=== PATIENT | female | born 1975 | race Caucasian/White ===

== ENCOUNTER 2016-12-15 03:58 | Emergency (ER) | payer BC ==
[~2016-12-15] VITALS: Ht 167.6 cm; Wt 72.0 kg
[~2016-12-15 03:58] MED LIST: ACYC800T57 PO; D-ME118S6 PO
[2016-12-15 04:03] VITALS: Ht 167.6 cm; Wt 72.0 kg
[2016-12-15 04:35] LABS: URINE BLOOD (Dip) POC Trace-intact (NEGATIVE)
--- NOTE | 2016-12-15 04:43 | ERD ---
ER Documentation Chief Complaint Date/Time DATE: 12/15/16 TIME: 04:35 Chief Complaint painful/burning urination/back pain x 2 days. HPI 41 year female presents here in emergency department for complaints of dysuria for 2 days. Patient's complaining of denies pain upon urination, burning pain, 6 /10 scale, radiates to the back area. She denies any fever or chills. Patient denies any vomiting. Patient denies any hematuria. Patient denies any vaginal itching or vaginal discharge. Patient denies any abdominal pain. She is complaining of bilateral flank pain. Patient states that she has dark-colored urine. ROS All systems reviewed and are negative except as per history of present illness. Medications Home Meds Active Scripts Dextromethorphan Hb-Promethazine Hcl (Promethazine DM Syrup) 180 Ml Syrup, 5 ML PO Q6H Y for COUGH, #4 OZ Prov:RAY CAMPBELL 02/22/16 Acyclovir* (Zovirax*) 800 Mg Tablet, 800 MG PO 5 TIMES DAILY for 7 Days, TAB Prov:RAY CAMPBELL 02/22/16 Allergies Allergies: Coded Allergies: No Known Drug Allergies (Verified Allergy, Unknown, 12/15/16) PMhx/Soc History of Surgery: Yes (brain surgery) Anesthesia Reaction: No Hx Neurological Disorder: No Hx Respiratory Disorders: No Hx Cardiac Disorders: No Hx Psychiatric Problems: No Hx Miscellaneous Medical Probl: No Hx Alcohol Use: No Hx Substance Use: No Hx Tobacco Use: No Smoking Status: Never smoker FmHx Family History: No coronary disease, No diabetes, No other Physical Exam Vitals Vital Signs Date Time Temp Pulse Resp B/P Pulse Ox O2 Delivery O2 Flow Rate FiO2 12/15/16 04:03 98.2 70 20 107/51 97 Physical Exam GENERAL: The patient is well developed and appropriate for usual state of health, in no apparent distress. CHEST: Clear to auscultation bilaterally. There are no rales, wheezes or rhonchi. HEART: Regular rate and rhythm. No murmurs, clicks, rubs or gallops. No S3 or S4. ABDOMEN: Soft, nontender and nondistended. Good bowel sounds. No rebound or guarding. No gross peritonitis. No gross organomegaly or masses. No Paul sign or McBurney point tenderness. BACK: No midline or flank tenderness. EXTREMITIES: Equal pulses bilaterally. There is no peripheral clubbing, cyanosis or edema. No focal swelling or erythema. Full range of motion. Grossly neurovascularly intact. NEURO: Alert and oriented. Cranial nerves 2-12 intact. Motor strength in all 4 extremities with 5/5 strength. Sensation grossly intact. Normal speech and gait. SKIN: There is no apparent rash or petechia. The skin is warm and dry. HEMATOLOGIC AND LYMPHATIC: There is no evidence of excessive bruising or lymphedema. No gross cervical, axillary, or inguinal lymphadenopathy. Results 24 hrs Laboratory Tests Test 12/15/16 04:36 Bedside Urine Blood Trace-intact Bedside Urine Glucose (UA) Negative Bedside Urine Ketones (LAB) Negative Bedside Urine Leukocyte Esterase (L Negative Bedside Urine Nitrite (LAB) Negative Bedside Urine Protein (LAB) Negative Bedside Urine pH (LAB) 5.5 PROCEDURE: CT Abdomen and pelvis without contrast. CLINICAL INDICATION: Abdominal pain, dysuria. TECHNIQUE: CT scan of the abdomen and pelvis was performed on a multi- detector high-resolution CT scanner. Contiguous axial images were obtained from the lung bases to the ischial tuberosities without intravenous contrast. Coronal and sagittal reformatted images were also obtained. Images were reviewed on the PACS workstation. One or more of the following dose reduction techniques were used: - Automated exposure control. - Adjustment of the mA and/or kV according to patient size. - Use of iterative reconstruction technique. Exam CTD/vol = 9.18 mGy. Total exam DLP = 516.74 mGy-cm. COMPARISON: None. FINDINGS: Evaluation of the lung bases demonstrates no pleural or parenchymal disease. Abdomen: The liver is normal in size. There is no focal mass or dilatation of the biliary tree. The gallbladder is not distended. The spleen, pancreas and bilateral adrenal glands are within normal limits. Bilateral kidneys are normal in size with no contour deforming mass identified. There is no radiopaque renal or ureteral calculus identified. There is no hydronephrosis or hydroureter. There is no retroperitoneal adenopathy. The abdominal aorta is of normal caliber. There is no abnormal bowel wall thickening or distension. There is no bowel obstruction or free air. A normal appendix is identified. There is no diverticulosis or diverticulitis. There is no ascites. Pelvis: The bladder is unremarkable. The uterus and adnexa are within normal limits. There is no significant pelvic adenopathy or free fluid. Evaluation of the osseous structures demonstrates no suspicious lytic or blastic lesion. IMPRESSION: No acute abnormality identified within the abdomen and pelvis. .Sedrick Deluca MD, MD Date Time Electronically viewed and signed by .Sedrick Deluca MD, MD on 12/15/2016 04:58 Procedures/MDM Medical Decision Making: Patient symptoms of dysuria and hematuria most likely consistent with possible cystitis. No symptoms at all and nephritis. No infected stone noted. There is low suspicion for abdominal emergencies at this time. Patients abdominal exam is normal at this time. Patients radiology exam does not show any abdominal emergencies at this time. There is low suspicion for appendicitis, cholecystitis, abdominal aortic aneurysms or peritonitis at this time. There is low suspicion for sepsis. Patient appears well and is hemodynamically stable. Disposition: Home. Condition: Stable Prescription ciprofloxacin, Pyridium. Instructions: Patient is advised to take medications as prescribed. Patient is advised to rest, increase fluid intake and do good perineal hygiene. Patient is advised that if symptoms are worse, severe abdominal pain, uncontrolled vomiting , high fever, severe flank pain, worst signs and symptoms, to return to the emergency department immediately. Otherwise, patient can follow up with primary care doctor in 5-7 days. Departure Diagnosis: Primary Impression: Cystitis Condition: Stable Patient Instructions: Cystitis Additional Instructions: Patient is advised to take medications as prescribed. Patient is advised to rest , increase fluid intake and do good perineal hygiene. Patient is advised that if symptoms are worse, severe abdominal pain, uncontrolled vomiting, high fever , severe flank pain, worst signs and symptoms, to return to the emergency department immediately. Otherwise, patient can follow up with primary care doctor in 5-7 days. STEPHEN DEVINE NP Dec 15, 2016 04:43
--- NOTE | 2016-12-15 04:58 | RADRPT ---
PROCEDURE: CT Abdomen and pelvis without contrast. CLINICAL INDICATION: Abdominal pain, dysuria. TECHNIQUE: CT scan of the abdomen and pelvis was performed on a multi-detector high-resolution CT scanner. Contiguous axial images were obtained from the lung bases to the ischial tuberosities wit hout intravenous contrast. Coronal and sagittal reformatted images were also obtained. Images were reviewed on the PACS workstation. One or more of the following dose reduction techniques were used: - Automated exposure control. - Adjustment of the mA and/or kV according to patient size. - Use of iterative reconstruction technique. Exam CTD/vol = 9.18 mGy. Total exam DLP = 516.74 mGy-cm. COMPARISON: None. FINDINGS: Evaluation of the lung bases demonstrates no pleural or parenchymal disease. Abdomen: The liver is normal in size. There is no focal mass or dilatation of the biliary tree. T he gallbladder is not distended. The spleen, pancreas and bilateral adrenal glands are within leyla l limits. Bilateral kidneys are normal in size with no contour deforming mass identified. There is no radiopaque renal or ureteral calculus identified. There is no hydronephrosis or hydroureter. T here is no retroperitoneal adenopathy. The abdominal aorta is of normal caliber. There is no abnormal bowel wall thickening or distension. There is no bowel obstruction or free air . A normal appendix is identified. There is no diverticulosis or diverticulitis. There is no asci jose. Pelvis: The bladder is unremarkable. The uterus and adnexa are within normal limits. There is no significant pelvic adenopathy or free fluid. Evaluation of the osseous structures demonstrates no suspicious lytic or blastic lesion. IMPRESSION: No acute abnormality identified within the abdomen and pelvis. .Sedrick Deluca MD, MD Date Time Electronically viewed and signed by .Sedrick Deluca MD, MD on 12/15/2016 04:58 .T/
[2016-12-15] MEDS ORDERED: PHEN-538 PO (05:04)
[2016-12-15] MEDS ORDERED: CIPR500T4 PO (05:04)
== END 2016-12-15 05:14 | disposition home or self-care (01) ==
LOC: FTE 03:58
DX: N30.90 Cystitis, unspecified without hematuria (principal)
CPT/HCPCS: 74176; 81003

== ENCOUNTER 2017-01-02 06:19 | Emergency (ER) | payer SELFPAY ==
[~2017-01-02 06:19] MED LIST changes: +CIPR500T4 PO; +PHEN-538 PO
[2017-01-03] MEDS ORDERED: NAPR-260 PO (09:29)
[2017-01-03] MEDS ORDERED: METR500T PO (09:29)
== END 2017-01-02 06:29 | disposition left against medical advice (07) ==
LOC: E/R 06:19
DX: Z53.21 Procedure and treatment not carried out due to patient leaving prior to being seen by health care provider (principal)

== ENCOUNTER 2017-01-03 05:38 | Emergency (ER) | payer BC ==
[~2017-01-03] VITALS: Ht 167.6 cm; Wt 71.0 kg
[2017-01-03 05:43] VITALS: Ht 167.6 cm; Wt 71.0 kg
[2017-01-03 07:22] LABS: ADD UMIC YES; URINE BILIRUBIN (Dip) NEGATIVE (NEGATIVE); URINE BLOOD (Dip) TRACE (NEGATIVE); URINE COLOR LT. YELLOW (YELLOW); URINE GLUCOSE (Dip) NEGATIVE (NEGATIVE); URINE KETONES (Dip) NEGATIVE (NEGATIVE); URINE LEUKOCYTE ESTERASE (Dip) NEGATIVE (NEGATIVE); URINE NITRITE (Dip) NEGATIVE (NEGATIVE); URINE TOTAL PROTEIN (Dip) NEGATIVE (NEGATIVE); URINE UROBILINOGEN (Dip) 0.2 E.U./dL (0.1-1.0)
[2017-01-03 07:57] LABS: SQUAMOUS EPITHELIAL CELL,UR FEW; URINE RBCS 0-2 /HPF (0)
--- NOTE | 2017-01-03 08:00 | RADRPT ---
PROCEDURE: US Pelvis CLINICAL INDICATION: Pelvic pain TECHNIQUE: Sonographic evaluation of the pelvis was performed utilizing both transabdominal and tr ansvaginal technique. Curved array transabdominal transducer technique as well as a high frequency endovaginal probe was utilized. Images were reviewed on the high-resolution PACS workstation. COMPARISON: None available FINDINGS: The uterus is normal in size, echogenicity, and morphology measuring 9.2 x 4.2 x 5.7 cm in dimension . The uterus is anteverted in normal position. Posterior fundal intramural fibroid is identified measuring 1.4 cm. The endometrium measures 3.6 mm in diameter. The normal trilaminar stripe of the endometrium is preserved. The right ovary measures 3.6 x 2.1 x 2.6 cm in dimension, and demonstrates a 1.[address] The left ovary measures 5.0 x 2.9 x 3.4 cm in dimension, and demonstrates a 3.0 cm hemorrhagic cyst. No ovarian torsion, adnexal mass or pelvic free fluid is identified. IMPRESSION: 1. Left ovary demonstrates a 3.0 cm hemorrhagic cyst. 2. Right ovary demonstrates a 1.5 cm corpus luteum cyst. 3. Posterior fundal intramural fibroid is identified measuring 1.4 cm. RPTAT: EE .Kirit Ventura MD, Date Time Electronically viewed and signed by .Kirit Ventura MD, MD on 01/03/2017 08:00 .R/
[2017-01-03] MEDS ORDERED: KETOROLAC 60 MG INJ IM STA (08:41)
[2017-01-03] MEDS ORDERED: FLUCONAZOLE 150 MG TAB PO ONE (09:00)
[2017-01-03] MEDS ORDERED: METR500T PO (09:29)
[2017-01-03] MEDS ORDERED: NAPR-260 PO (09:29)
[2017-01-03 09:41] VITALS: BP 142/82; PULSE 78; RESP 20; TEMP 98.7
--- NOTE | 2017-01-03 10:00 | ERD ---
ER Documentation Chief Complaint Date/Time DATE: 01/03/17 TIME: 09:51 Chief Complaint constant painful urination x 2 weeks HPI 41-year-old female with no significant past medical history presents the ED complaining of back pain with urination. States that she was prescribed ciprofloxacin and Pyridium a few weeks ago and it did not help with her pain. Reports that she has vaginal discharge. States that her last menses was about 2 weeks ago. States that she did have unprotected intercourse 6 days ago. States that the symptoms were occurring prior to the incident. Denies any vaginal bleeding, abdominal pain, nausea, vomiting, chest pain, shortness of breath, cough, rhinorrhea. States that she is not truly concerned about STDs. ROS All systems reviewed and are negative except as per history of present illness. Medications Home Meds Active Scripts Metronidazole* (Flagyl*) 500 Mg Tablet, 500 MG PO TID for 7 Days, TAB Prov:TRISTEN CARLSON PA-C 01/03/17 Naproxen* (Naprosyn*) 500 Mg Tablet, 500 MG PO BID Y for PAIN AND/OR INFLAMMATION, #30 TAB Prov:TRISTEN CARLSON PA-C 01/03/17 Phenazopyridine Hcl* (Pyridium*) 200 Mg Tab, 200 MG PO TID Y for URINARY PAIN, # 6 TAB Prov:STEPHEN DEVINE NP 12/15/16 Ciprofloxacin Hcl* (Ciprofloxacin Hcl*) 500 Mg Tablet, 500 MG PO BID for 10 Days , TAB Prov:STEPHEN DEVINE NP 12/15/16 Dextromethorphan Hb-Promethazine Hcl (Promethazine DM Syrup) 180 Ml Syrup, 5 ML PO Q6H Y for COUGH, #4 OZ Prov:ADRIANRAY CLARK C 02/22/16 Acyclovir* (Zovirax*) 800 Mg Tablet, 800 MG PO 5 TIMES DAILY for 7 Days, TAB Prov:ADRIANRAY CLARK 02/22/16 Allergies Allergies: Coded Allergies: No Known Drug Allergies (Verified Allergy, Unknown, 12/15/16) PMhx/Soc History of Surgery: Yes (brain surgery) Anesthesia Reaction: No Hx Neurological Disorder: No Hx Respiratory Disorders: No Hx Cardiac Disorders: No Hx Psychiatric Problems: No Hx Miscellaneous Medical Probl: Yes (UTI) Hx Alcohol Use: No Hx Substance Use: No Hx Tobacco Use: No Smoking Status: Never smoker Physical Exam Vitals Vital Signs Date Time Temp Pulse Resp B/P Pulse Ox O2 Delivery O2 Flow Rate FiO2 01/03/17 09:41 98.7 78 20 142/82 100 Room Air 01/03/17 05:43 98.9 72 20 165/90 100 Physical Exam Const: [id number], well-nourished. In no acute distress. Head: Atraumatic, normocephalic Eyes: Normal Conjunctiva without injection. No purulent discharge. ENT: Normal external ear, nose. Moist oropharynx without tonsillar exudates. Non -erythematous pharynx. Uvula midline. No drooling. No trismus. Neck: No cervical midline tenderness. Full range of motion. No meningismus. No cervical lymphadenopathy. No JVD. Resp: Clear to auscultation bilaterally. No wheezing, rhonchi, rales, or crackles. No accessory muscle use. No retractions. Cardio: Regular rate and rhythm. No murmurs, rubs or gallops. Abd: Soft, slight bilateral pelvic tenderness, non distended. Normal bowel sounds. No palpable masses. No rebound tenderness. No guarding. Negative McBurney's point. Negative psoas sign. Negative obturator sign. Skin: No petechiae or rashes Back: No midline tenderness. No CVA tenderness. Ext: No cyanosis, or edema. Neur: Awake and alert. Normal gait. Normal coordination. Psych: Normal Mood and Affect Results 24 hrs Laboratory Tests Test 01/03/17 06:52 Urine Bilirubin NEGATIVE Urine Clarity CLEAR Urine Color LT. YELLOW Urine Glucose NEGATIVE% Urine Hemoglobin TRACE Urine Ketones NEGATIVE Urine Leukocyte Esterase NEGATIVE Urine Microscopic RBC 0-2/HPF Urine Microscopic WBC NONE SEEN/HPF Urine Nitrite NEGATIVE Urine Specific [place] 1.010 Urine Squamous Epithelial Cells FEW Urine Total Protein NEGATIVE Urine Urobilinogen 0.2 E.U./dL Urine pH 5.5 Current Medications Medications (Trade) Dose Ordered Sig/Rui Route PRN Reason Start Time Stop Time Status Last Admin Dose Admin Fluconazole (Diflucan) 150 mg ONCE ONCE PO 01/03/17 09:00 01/03/17 09:01 DC 01/03/17 09:09 Ketorolac Tromethamine (Toradol) 60 mg ONCE STAT IM 01/03/17 08:41 2/8/17 08:45 DC 01/03/17 09:00 Procedures/MDM This is a 41-year-old female with no significant past medical history presents the ED complaining of bilateral pelvic pain, dysuria, vaginal discharge. Patient is afebrile and nontoxic-appearing. Patient has normal vital signs. Patient gave consent to do a pelvic exam. An ultrasound of the pelvis was also ordered to further evaluate patient. Patient was treated here in the ED with Toradol with improvement of her pain. PROCEDURE: US Pelvis CLINICAL INDICATION: Pelvic pain TECHNIQUE: Sonographic evaluation of the pelvis was performed utilizing both transabdominal and transvaginal technique. Curved array transabdominal transducer technique as well as a high frequency endovaginal probe was utilized. Images were reviewed on the high-resolution PACS workstation. COMPARISON: None available FINDINGS: The uterus is normal in size, echogenicity, and morphology measuring 9.2 x 4.2 x 5.7 cm in dimension. The uterus is anteverted in normal position. Posterior fundal intramural fibroid is identified measuring 1.4 cm. The endometrium measures 3.6 mm in diameter. The normal trilaminar stripe of the endometrium is preserved. The right ovary measures 3.6 x 2.1 x 2.6 cm in dimension, and demonstrates a 1.5 cm corpus luteum cyst. The left ovary measures 5.0 x 2.9 x 3.4 cm in dimension, and demonstrates a 3.0 cm hemorrhagic cyst. No ovarian torsion, adnexal mass or pelvic free fluid is identified. IMPRESSION: 1. Left ovary demonstrates a 3.0 cm hemorrhagic cyst. 2. Right ovary demonstrates a 1.5 cm corpus luteum cyst. 3. Posterior fundal intramural fibroid is identified measuring 1.4 cm. 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 Patient will be given a prescription for metronidazole to cover for bacterial vaginosis. Low suspicion for symptomatic anemia, ectopic , sepsis, PID, appendicitis, ovarian torsion, tubo-ovarian abscess, surgical abdomen, or other emergent conditions. Discharge medications: Metronidazole, Naproxen Follow up with primary care physician in 1-2 days for SUPERVISOR INCISING follow up and care. Instructed patient to return to the ED sooner for any worsening symptoms. Patient's questions were answered. Patient understood and agreed with discharge plan. Patient discharged stable. Departure Diagnosis: Primary Impression: Vaginal discharge Additional Impressions: Fibroid Uterine leiomyoma location: unspecified location Qualified Code: D25.9 - Uterine leiomyoma, unspecified location Ovarian cyst Laterality: bilateral Qualified Code: N83.201 - Cysts of both ovaries Condition: Stable Patient Instructions: What Are Fibroids?, What Are Ovarian Cysts?, Vaginal Infection: Bacterial Vaginosis, Vaginal Infection: Yeast (Candidiasis) Referrals: [facility] YOU HAVE RECEIVED A MEDICAL SCREENING EXAM AND THE RESULTS INDICATE THAT YOU DO NOT HAVE A CONDITION THAT REQUIRES URGENT TREATMENT IN THE EMERGENCY DEPARTMENT. FURTHER EVALUATION AND TREATMENT OF YOUR CONDITION CAN WAIT UNTIL YOU ARE SEEN IN YOUR DOCTORS OFFICE WITHIN THE NEXT 1-2 DAYS. IT IS YOUR RESPONSIBILITY TO MAKE AN APPOINTMENT FOR FOLOW-UP CARE. IF YOU HAVE A PRIMARY DOCTOR --you should call your primary doctor and schedule an appointment IF YOU DO NOT HAVE A PRIMARY DOCTOR YOU CAN CALL OUR PHYSICIAN REFERRAL HOTLINE AT IF YOU CAN NOT AFFORD TO SEE A PHYSICIAN YOU CAN CHOSE FROM THE FOLLOWING [facility] [address] [facility]. [facility] [address] [facility] [facility] [address] [facility] [address] [facility]. [facility] [address] [facility]. [facility]. [address] [facility]. [facility] YOU HAVE RECEIVED A MEDICAL SCREENING EXAM AND THE RESULTS INDICATE THAT YOU DO NOT HAVE A CONDITION THAT REQUIRES URGENT TREATMENT IN THE EMERGENCY DEPARTMENT. FURTHER EVALUATION AND TREATMENT OF YOUR CONDITION CAN WAIT UNTIL YOU ARE SEEN IN YOUR DOCTORS OFFICE WITHIN THE NEXT 1-2 DAYS. IT IS YOUR RESPONSIBILITY TO MAKE AN APPOINTMENT FOR FOLOW-UP CARE. IF YOU HAVE A PRIMARY DOCTOR --you should call your primary doctor and schedule and appointment IF YOU DO NOT HAVE A PRIMARY DOCTOR YOU CAN CALL OUR PHYSICIAN REFERRAL HOTLINE AT . IF YOU CAN NOT AFFORD TO SEE A PHYSICIAN YOU CAN CHOSE FROM THE FOLLOWING [facility] INSTITUTIONS: [facility] [address] [place] [address] [facility] [address] [place] [address] [facility] [address] [place] [address] [employer] [address] [facility] [address] [place] [address] OFFICE FAX , [facility] [address] [place], [place] [id number] [facility] [address] [place] [address] [address], [facility] [address] [facility], [facility] [address] [address] [address] [place] [address] [facility] [address] [place] [address] [address] [facility] [id number] - [address], [facility] [address] [address] [address] [facility] [address], [facility] [address] [address] [address] [place], [place] [id number] [facility] Hours: 8:00 am - 5:00 pm Additional Instructions: FOLLOW UP WITH YOUR PRIMARY CARE PHYSICIAN TOMORROW for a referral to an OB/ GRAVITY PROSPECTING OBSERVER HELPER. Return to this facility if you are not improving as expected. TRISTEN CARLSON PA-C Jan 03, 2017 10:00
== END 2017-01-03 09:43 | disposition home or self-care (01) ==
LOC: FTE 05:38
DX: N89.8 Other specified noninflammatory disorders of vagina (principal); D25.9 Leiomyoma of uterus, unspecified; N83.201 Unspecified ovarian cyst, right side
CPT/HCPCS: 76830; 76856; 81001; 81003; 87086; 87591; J1885; Z7610; 96372